=== PATIENT | female | born 1940 | race Caucasian/White ===

== ENCOUNTER 2020-12-30 12:46 | Inpatient (IN) | payer OTHER ==
[~2020-12-30] VITALS: Ht 170.2 cm; Wt 74.8 kg
[2020-12-30 14:03] LABS: HEMOGLOBIN 13.9 gm/dl (12.3-15.3); RED BLOOD COUNT 4.53 M/UL (4.00-5.10); WHITE BLOOD COUNT 8.3 K/UL (4.5-11.0)
[2020-12-30 14:30] LABS: BUN/CREATININE RATIO 22 (0-10)
[2020-12-30] MEDS ORDERED: ASPIRIN CHEWABL81 MG PO (20:09)
[2020-12-30] MEDS ORDERED: COZAAR 25MG TAB25 MG GT (20:09)
[2020-12-30] MEDS ORDERED: LIPITOR40 MG PO (20:10)
[2020-12-31 04:06] LABS: HEMOGLOBIN 14.5 gm/dl (12.3-15.3); RED BLOOD COUNT 4.94 M/UL (4.00-5.10); WHITE BLOOD COUNT 6.8 K/UL (4.5-11.0)
[2020-12-31 04:16] LABS: BUN/CREATININE RATIO 20 (0-10)
[2021-01-01 06:27] LABS: HEMOGLOBIN 14.5 gm/dl (12.3-15.3); RED BLOOD COUNT 4.77 M/UL (4.00-5.10)
[2021-01-01 06:29] LABS: WHITE BLOOD COUNT 9.3 K/UL (4.5-11.0)
[2021-01-01 06:58] LABS: BUN/CREATININE RATIO 17 (0-10)
[2021-01-02 02:51] LABS: HEMOGLOBIN 13.6 gm/dl (12.3-15.3); RED BLOOD COUNT 4.51 M/UL (4.00-5.10); WHITE BLOOD COUNT 7.2 K/UL (4.5-11.0)
[2021-01-03 04:38] LABS: HEMOGLOBIN 14.4 gm/dl (12.3-15.3)
[2021-01-03 04:59] LABS: BUN/CREATININE RATIO 16 (0-10)
[2021-01-04 03:12] LABS: HEMOGLOBIN 13.7 gm/dl (12.3-15.3)
[2021-01-04 03:48] LABS: BUN/CREATININE RATIO 17 (0-10)
[2021-01-05 03:09] LABS: HEMOGLOBIN 13.3 gm/dl (12.3-15.3)
[2021-01-05 03:42] LABS: BUN/CREATININE RATIO 12 (0-10)
[2021-01-06 05:32] LABS: HEMOGLOBIN 12.7 gm/dl (12.3-15.3)
[2021-01-06 05:51] LABS: BUN/CREATININE RATIO 14 (0-10)
[2021-01-06] MEDS ORDERED: MELATONIN3 MG PO (14:52)
[2021-01-06] MEDS ORDERED: NYSTOP60 GM TOP (14:52)
[2021-01-06] MEDS ORDERED: ELIQUIS 2.5 MG2.5 MG PO ×2 (14:53→15:08)
[2021-01-06] MEDS ORDERED: ASPIRIN CHEWABL81 MG PO (15:12)
[2021-01-06] MEDS ORDERED: COZAAR 25MG TAB25 MG PO (15:13)
[2021-01-06] MEDS ORDERED: ATORVASTATIN CA20 MG PO (15:14)
== END 2021-01-06 16:21 | DRG 64 ==
LOC: ER1 12:46 → CDU 16:55 → M/S 18:07
PROVIDERS: Family Medicine; Physician Assistant Medical; Surgery; ADMIT Internal Medicine
PROC: 0DJD8ZZ Inspection of Lower Intestinal Tract, Via Natural or Artificial Opening Endoscopic (ICD-10-PCS; principal; 2021-01-05 08:45)
DX: I63.311 Cerebral infarction due to thrombosis of right middle cerebral artery (principal); I67.83 Posterior reversible encephalopathy syndrome; I48.92 Unspecified atrial flutter; Z20.822 Contact with and (suspected) exposure to COVID-19; K62.5 Hemorrhage of anus and rectum; I16.1 Hypertensive emergency; G81.94 Hemiplegia, unspecified affecting left nondominant side; I16.0 Hypertensive urgency; K57.30 Diverticulosis of large intestine without perforation or abscess without bleeding; I27.20 Pulmonary hypertension, unspecified; R47.01 Aphasia; R47.81 Slurred speech; G47.00 Insomnia, unspecified; K64.0 First degree hemorrhoids; I44.30 Unspecified atrioventricular block; R27.0 Ataxia, unspecified; I49.5 Sick sinus syndrome; L89.152 Pressure ulcer of sacral region, stage 2; E78.5 Hyperlipidemia, unspecified; R53.81 Other malaise; I10 Essential (primary) hypertension; Z79.01 Long term (current) use of anticoagulants; Z79.82 Long term (current) use of aspirin; Z82.3 Family history of stroke; Z82.49 Family history of ischemic heart disease and other diseases of the circulatory system
CPT/HCPCS: ECHO; 36415; 70450; 70496; 70498; 70551; 80048; 80053; 80061; 81001; 82550; 82553; 83036; 83735; 83874; 84439; 84443; 84484; 85014; 85018; 85025; 85027; 85610; 85730; 93005; 93306; 96374; 96375; 97110; 97116-GP-CQ; 97161; 97166; 97530; 97535; 99285; G0378; J1644; J1650; J2060; J2704; Q9967; U0002